=== PATIENT | male | born 1950 | race Caucasian/White ===

== ENCOUNTER 2017-03-25 20:42 | Emergency (ER) | payer MEDICARE ==
[2017-03-25] MEDS ORDERED: Ondansetron INJ* 2 MG/ML VIAL IV ONE (21:23)
[2017-03-25] MEDS ORDERED: Morphine INJ* 2 MG/ML 1 ML SYRINGE IV ONE (21:23)
[2017-03-25] MEDS ORDERED: NS 0.9% 1000 ML* 1,000 ML IV ONE (21:23)
[2017-03-25] MEDS ORDERED: LORazepam INJ* 2 MG/ML 1 ML VIAL IV PUSH ONE (21:50)
[2017-03-25] MEDS ORDERED: LORazepam INJ* 2 MG/ML 1 ML VIAL ONE (21:51)
[2017-03-25 21:53] LABS: Hematocrit 40 % (42-52); Hemoglobin 13.8 g/dl (14.0-18.0); Mean Corpuscular HGB Conc 34 g/dl (31-36); Mean Corpuscular Hemoglobin 31 pg (27-31); Mean Corpuscular Volume 89 fL (80-94); Mean Platelet Volume 7 um3 (7.4-10.4); Red Blood Count 4.53 10^6/ul (4.0-5.4); Red Cell Distribution Width 14 % (10.5-15); White Blood Count 3.5 10^3/ul (3.5-10.8)
[2017-03-25 22:08] LABS: Calcium 9.4 mg/dL (8.6-10.3); EGFR African American 95.9 (>60); EGFR Non-African American 74.5 (>60)
--- NOTE | 2017-03-25 22:49 | ED ---
I, Oh,Sothelma, scribed for Rk Camilo MD on 03/25/17 at 2113 . Upper Extremity Pain - HPI Summary HPI Summary: LEVEL 5 CAVEAT secondary to EtOH intoxication This 66 y/o male presents to ED via ambulance after slipping and falling from the dock RN PALLIATIVE CARE. Pt fell into water from the dock, and was pulled up by family members present at that time. Positive EtOH intoxication and right shoulder pain. Pt is able to move right shoulder at time of initial evaluation. - History of Current Complaint Chief Complaint: EDSubstanceAbuse Stated Complaint: RT SHOULDER INJURY Time Seen by Provider: 03/25/17 21:03 Hx Obtained From: Family/Vessel Builder Onset/Duration: Started Minutes Ago, Traumatic, Still Present Timing: Constant Pain Location: Shoulder - right Aggravating Factor(s): Nothing Alleviating Factor(s): Nothing Associated Signs & Symptoms: Positive: Negative - Allergies/Home Medications Allergies/Adverse Reactions: Allergies Allergy/AdvReac Type Severity Reaction Status Date / Time No Known Allergies Allergy Verified 03/25/17 21:37 PMH/Surg Hx/FS Hx/Imm Hx Previously Healthy: No - PMHx unobtainable due to EtOH intoxication Sensory History: Denies: Hx Legally Blind, Hx Deafness Infectious Disease History: Unable to Obtain/Confirm Infectious Disease History: Denies: Traveled Outside the [place] in Last 30 Days - Family History Known Family History: Positive: Unknown - LEVEL 5 CAVEAT secondary to EtOH intoxication - Social History Alcohol Use: unknown Substance Use Type: Reports: None Smoking Status (MU): Unknown if Ever Smoked - LEVEL 5 CAVEAT secondary to EtOH intoxication Review of Systems - ROS Summary Review of Systems Summary: LEVEL 5 CAVEAT secondary to EtOH intoxication Negative: Fever Positive: Other - right shoulder pain All Other Systems Reviewed And Are Negative: No Physical Exam Triage Information Reviewed: Yes Vital Signs On Initial Exam: Initial Vitals Temp Pulse Resp BP Pulse Ox 96.4 F 79 20 119/84 91 03/25/17 20:51 03/25/17 20:51 03/25/17 20:51 03/25/17 20:51 03/25/17 20:51 Vital Signs Reviewed: Yes Appearance: Positive: Well-Appearing, Pain Distress - mild discomfort, aob Skin: Positive: Warm Head/Face: Positive: Normal Head/Face Inspection Eyes: Positive: EOMI, JUAN RAMON ENT: Positive: Hearing grossly normal Neck: Positive: Supple Respiratory/Lung Sounds: Positive: Clear to Auscultation, Breath Sounds Present Cardiovascular: Positive: RRR Abdomen Description: Positive: Nontender, Soft Bowel Sounds: Positive: Present Musculoskeletal: Positive: Strength/ROM Intact Neurological: Positive: Alert, Oriented to Person Place, Time Psychiatric: Positive: Affect/Mood Appropriate - [place] Coma Scale Coma Scale Total: 15 Diagnostics - Vital Signs Vital Signs Temp Pulse Resp BP Pulse Ox 03/25/17 20:51 96.4 F 79 20 119/84 91 - Laboratory Result Diagrams: 03/25/17 21:45 03/25/17 21:45 Lab Statement: Any lab studies that have been ordered have been reviewed, and results considered in the medical decision making process. - Radiology Shoulder right Radiology Interpretation Completed By: ED Physician - CT Brain CT Interpretation: No Acute Changes - No definite acute hemorrhage, mass or acute territorial infarct. Exam slightly limited by artifact. Age-related involutional changes. No skull fracture. Clear visulaized paranasal sinuses. Visualized mastoid air cells clear. CT Interpretation Completed By: Radiologist C-Spine CT Interpretation: No Acute Changes - No acute fracture. Multilevel spondylosis. Minimal rotation C1-C2, probably positional. CT Interpretation Completed By: Radiologist Re-Evaluation - Re-Evaluation First Eval Re-Evaluation Time: 21:25 Comment: Pt is noted with n/v. Second Eval Change: Improved - results d/w pt, pt ambulatory without difficulty Course/Dx - Course Assessment/Plan: This 66 y/o male presents to ED for right shoulder pain secondary to a fall RN PALLIATIVE CARE. Pt was EtOH intoxicated, slipped from dock, and fell into water RN PALLIATIVE CARE. There was report of possible right shoulder dislocation at time of triage, but pt is noted able to move his right arms at time of initial evaluation. CT Brain and C-spine are without evidence of acute findings. Blood work is nml except for blood EtOH of 313. - Diagnoses Provider Diagnoses: Alcohol intoxication, Multiple contusions - Critical Care Time Critical Care Time: 30-74 min Discharge - Discharge Plan Condition: Stable Disposition: HOME Patient Education Materials: Alcohol Intoxication (ED), Contusion in Adults (ED ) Referrals: Rk Gonzalez MD [Primary Care Provider] - 2 Days The documentation as recorded by the Allen weaver Soohyun accurately reflects the service I personally performed and the decisions made by me, Rk Camilo MD.
[2017-03-25 22:52] LABS: Potassium 4.1 mmol/L (3.5-5.0)
[2017-03-26 06:27] VITALS: BP 109/56
--- NOTE | 2017-03-26 08:52 | RAD ---
Indication: Fall, head injury. CT of the brain was performed without IV contrast. Ventricular structures are midline. No midline shift is noted. The extra-axial spaces are unremarkable. There is no evidence of intracranial mass or hemorrhage. No other high or low density lesions are identified. Mastoid air cells and paranasal sinuses are otherwise unremarkable. IMPRESSION: No intracranial mass or hemorrhage is noted.
--- NOTE | 2017-03-26 08:53 | RAD ---
Indication: Neck injury. CT of the cervical spine was obtained in the axial plane. There is motion artifact limiting evaluation. Mastoid air cells are well aerated. No skull base fractures noted. The C1 ring is intact. Gentle changes of the atlantoaxial joint is noted. At C2-C3 and C3-C4 there is right uncovertebral hypertrophy narrowing the right foramen. No central or foraminal stenosis is noted. At C4-C5 spondylitic ridge flattens the thecal sac. Left uncovertebral joint hypertrophy and left facet arthropathy is noted. At C5-C6 spondylitic ridge flattens the thecal sac. No central or foraminal stenosis is noted. At C6-C7 spondylitic ridge flattens the thecal sac. No fracture is identified. Lung apices are unremarkable. IMPRESSION: Degenerative disc disease at the atlantoaxial joint. Degenerative disc disease at C4-C5, C5-C6 and C6-C7. No definite fracture is identified.
--- NOTE | 2017-03-26 10:41 | RAD ---
Indication: Left shoulder pain after fall. 4 views of left shoulder demonstrates AC joint arthritis. Degenerative changes of the glenohumeral joint is noted. No fracture is noted. IMPRESSION: Degenerative changes of the left glenohumeral joint.
== END 2017-03-26 06:25 | disposition home or self-care (01) ==
LOC: ED 20:42
DX: F10.129 Alcohol abuse with intoxication, unspecified (principal); S40.011A Contusion of right shoulder, initial encounter; M25.511 Pain in right shoulder; W17.4XXA Fall from dock, initial encounter; Y93.89 Activity, other specified; Y92.89 Other specified places as the place of occurrence of the external cause; Y99.8 Other external cause status
CPT/HCPCS: 36415; 70450; 72125; 80048; 80320; 84484; 85025; 96374; 96375; 99285; G0480; J2060; J2270; J2405

== ENCOUNTER 2018-12-24 07:47 | Observation (INO) | payer MEDICARE ==
[~2018-12-24 07:47] MED LIST: Buffered Lidocaine 1% SYRIN* 1 ML/SYRINGE INTRADERM ONE; Lactated Ringers 1000 ML Bag* 1,000 ML IV SCH
[2018-12-24] MEDS ORDERED: Buffered Lidocaine 1% SYRIN* 1 ML/SYRINGE INTRADERM ONE (08:00)
[2018-12-24] MEDS ORDERED: ceFAZolin 2 GM PREMIX in ORs 2 GM/50 ML BAG IVPB ONE (08:00)
[2018-12-24] MEDS ORDERED: Propofol* 10 MG/ML 20 ML BTL ONE (08:25)
[2018-12-24] MEDS ORDERED: Propofol* 500 MG/50 ML BTL ONE (08:25)
[2018-12-24] MEDS ORDERED: KETAMINE HCL* 50 MG/ML 10 ML VIAL ONE (08:25)
[2018-12-24] MEDS ORDERED: Lidocaine 2% PF * 5 ML VIAL ONE (08:40)
[2018-12-24] MEDS ORDERED: ROPIVACAINE 5 MG/ML 30 ML BTL (0.5%) ONE (08:41)
[2018-12-24] MEDS ORDERED: Dexmedetomidine* 200 MCG/2 ML 2 ML VIAL ONE (08:44)
[2018-12-24] MEDS ORDERED: fentaNYL* 50 MCG/ML 2 ML VIAL (100 MCG VIAL) ONE (08:45)
[2018-12-24] MEDS ORDERED: Midazolam* 1 MG/ML 2 ML VIAL (2 MG) ONE (08:45)
[2018-12-24] MEDS ORDERED: Rocuronium* 10 MG/ML VIAL ONE ×2 (09:18→12:42)
[2018-12-24] MEDS ORDERED: Succinylcholine* 20 MG/ML 10 ML VIAL ONE (10:30)
[2018-12-24] MEDS ORDERED: Phenylephrine 10 MG/ML VIAL* 1 ML VIAL ONE (10:44)
[2018-12-24] MEDS ORDERED: Dexamethasone IV* 4 MG/ML 1 ML (4 MG) ONE (11:04)
[2018-12-24] MEDS ORDERED: oxyCODONE TAB* 5 MG TAB PO PRN ×2 (11:11→13:50)
[2018-12-24] MEDS ORDERED: Naloxone* 0.4 MG/ML 1 ML VIAL IV PRN (11:11)
[2018-12-24] MEDS ORDERED: HYDROmorphone INJ1* 1 MG/ML SYRINGE IV PRN (11:11)
[2018-12-24] MEDS ORDERED: Acetaminophen IV 1GM/100ML * 100 ML ONE (12:56)
[2018-12-24] MEDS ORDERED: Metoclopramide IV* 5 MG/ML 2 ML VIAL ONE (12:57)
[2018-12-24] MEDS ORDERED: Ondansetron INJ* 2 MG/ML VIAL ONE (12:57)
[2018-12-24] MEDS ORDERED: Ketorolac INJ* 30 MG/ML 1 ML VIAL ONE (12:57)
[2018-12-24] MEDS ORDERED: Neostigmine Methylsulfate* 1 MG/ML 10 ML VIAL (1 mg/ml) ONE (13:26)
[2018-12-24] MEDS ORDERED: Glycopyrrolate IV* 0.2 MG/ML 1 ML VIAL ONE (13:26)
[2018-12-24] MEDS ORDERED: Ondansetron INJ* 2 MG/ML VIAL IV PRN (13:50)
[2018-12-24] MEDS ORDERED: Magnesium Hydroxide LIQ* 30 ML UDC PO PRN (13:50)
[2018-12-24] MEDS ORDERED: diPHENhydraMINE PO* 25 MG PO PRN (13:50)
[2018-12-24] MEDS ORDERED: Morphine INJ* 2 MG/ML 1 ML SYRINGE (TWO MG - NEW SYRINGE VERSION) IV PRN (13:50)
[2018-12-24] MEDS ORDERED: Cyclobenzaprine TAB* 10 MG PO PRN ×2 (13:50→14:02)
[2018-12-24] MEDS ORDERED: Ondansetron ODT TAB* 4 MG PO PRN (13:50)
[2018-12-24] MEDS ORDERED: Bisacodyl SUPP* 10 MG SUPP PR PRN (13:50)
[2018-12-24] MEDS ORDERED: diPHENhydraMINE IV* 50 MG/ML 1 ml VIAL (BENADRYL) IV PRN (13:50)
[2018-12-24] MEDS ORDERED: D5W 1/2 NS 1000 ML BAG* 1,000 ML IV SCH (14:00)
[2018-12-24] MEDS ORDERED: traMADol TAB* 50 MG PO SCH (14:00)
[2018-12-24] MEDS ORDERED: Phenylephrine 40 MCG/ML SYRINGE ONE (14:56)
[2018-12-24 15:29] LABS: Hematocrit 30 % (42-52); Hemoglobin 10.5 g/dL (14.0-18.0)
[2018-12-24] MEDS ORDERED: EPHEDrine (Pressors)* 50 MG/ML VIAL ONE (16:02)
[2018-12-24] MEDS ORDERED: Lactated Ringers 1000 ML Bag* 1,000 ML IV SCH (17:00)
[2018-12-24] MEDS ORDERED: Lactated Ringers 1000 ML Bag* 1,000 ML IV ONE (19:00)
[2018-12-24] MEDS: ceFAZolin 1 GM ADVAN(*) 1 GM in NS 0.9% 50 ML* 50 ML IVPB SCH (20:03)
[2018-12-24] MEDS: Docusate CAP* 100 MG PO SCH (20:05)
[2018-12-24] MEDS: Magnesium Hydroxide LIQ* 30 ML UDC PO SCH (20:05)
--- NOTE | 2018-12-24 20:22 | CONS ---
CONSULTATION REPORT: ADDENDUM: The patient was seen and examined at bedside. The case was discussed and reviewed with Mami Mayo NP. Mr. Louis is a 68-year-old male with a past medial history of hyperlipidemia, history of prostate cancer, and impaired fasting glucose that was admitted for right shoulder replacement with Dr. Pardo. The hospitalist service was called because the patient developed hypotension postop. At the time of my evaluation, the patient's blood pressure was 96/58. He was maintaining well and had no complaints. He denied dizziness or lightheadedness. His postop H and H was 10/40 and he is seems to be responding to IV fluids. We will continue to follow him along. At this point, he does not seem to have indication for vasopressors. I am in agreement with the current management. [id number]/CPS #: [id number] MTDGermaine
[2018-12-24 20:52] LABS: Hematocrit 30 % (42-52); Hemoglobin 10.2 g/dL (14.0-18.0)
--- NOTE | 2018-12-24 20:55 | CONS ---
ATTENDING PROVIDER ADDENDUM NOW INCLUDED ON THIS REPORT HOSPITAL MEDICINE CONSULTATION REPORT: DATE OF CONSULT: 12/24/18 PROVIDER: Mami Mayo NP ATTENDING PHYSICIAN: Dr. Pardo. CONSULTING PHYSICIAN: Dr. Jesús Perdomo * (dictated by Mami Mayo NP). REASON FOR CONSULT: Hypotension. HISTORY OF PRESENT ILLNESS: Mr. Louis is a 68-year-old male with a past medical history significant for hyperlipidemia, BPH, prostate cancer, GERD, who [place] [facility] right total shoulder replacement with Dr. Pardo. Please see dictated H and P from Dr. Pardo for complete details. In brief, the patient failed conservative measures and opted for a shoulder replacement with Dr. Pardo. In the postoperative period, we were contacted due to the patient's hypotension in the PACU. He denies any dizziness or lightheadedness. Denies any chest pain or shortness of breath. Denies any recent fever, chills, cough, congestion, or hemoptysis. Denies any nausea, vomiting, diarrhea, abdominal pain, gross hematuria, or dysuria. Denies any focal weakness or sensory loss, dysphagia, arthralgias. He does report right shoulder pain that has been chronic prior to the surgery. He denies any rashes , lesions, psychosis, or anxiety. Due to his hypotension in the PACU, Hospital Medicine was asked to consult. PAST MEDICAL HISTORY: Significant for: 1. Hyperlipidemia. 2. BPH. 3. Prostate cancer, status post radiation and prostatectomy. 4. GERD. 5. Depression. PAST SURGICAL HISTORY: 1. Left calcaneus surgery x2. 2. Right knee surgery. 3. Carpal tunnel release bilaterally. 4. Prostatectomy. HOME MEDICATIONS: Include: 1. Omeprazole 40 mg p.o. daily. 2. Lexapro 10 mg p.o. daily. 3. Multivitamin 1 tablet p.o. daily. 4. Crestor 10 mg p.o. daily. ALLERGIES: No known drug allergies. FAMILY HISTORY: Mother with a history of pacemaker in early 80s. No reported history of diabetes. Father with stomach cancer, at the age of 60. Sister with breast cancer. SOCIAL HISTORY: The patient quit smoking approximately 10 years ago. Prior to that, he smoked 2-1/2 packs a day x12 years and then 2 packs a day of cigarettes for a total of 45 years and then went to cigars 5 to 6 cigars a day and stopped in his late 50s. He does report occasional alcohol use. Denies any illicit drug use. He is retired. He is . He lives with his . Surrogate decision maker in the event he is unable to make his own decisions is his . He is a full code. REVIEW OF SYSTEMS: A 14-point review of systems was completed. All pertinent positives are mentioned in the HPI. Otherwise were negative. PHYSICAL EXAM: General: At this time, Mr. Louis is a 68-year-old male. He is alert and oriented, sitting on the stretcher in PACU. He is not in any acute distress. Vital Signs: Blood pressure was 93/61, heart rate 96, respirations were 22, O2 saturation 94% on room air, temperature was 97.0. HEENT: Head is atraumatic, normocephalic. Eyes: EOMs are intact. Sclerae anicteric and not pale. Oral mucosa appeared to be moist. Neck is supple. Lungs are clear to auscultation bilaterally. No wheezes, rales, or rhonchi. Cardiac: S1, S2. Regular rate and rhythm. No murmurs, rubs, or gallops. Abdomen is soft and nontender. Bowel sounds are present x4. Extremities: He has limited range of motion of his right arm. It is in a shoulder immobilizer. Radial pulses +2 bilaterally. CMSTs are intact to the right hand. Pedal pulses are +2 bilaterally. There is no clubbing or cyanosis. Skin: He has a dressing intact to his right shoulder. There is no drainage noted. Neurologic : The patient is awake, alert, and oriented x3. Speech is clear. Thought process is intact. There are no gross focal deficits. Psych: The patient is alert and oriented, cooperative. DIAGNOSTIC STUDIES/LAB DATA: Repeat H and H were 10.5 and 30. On 12/12/18, the patient's CBC: WBCs were 2.4, RBCs 4.16, hemoglobin 10.5, hematocrit was 30 , platelet count was 172. INR was 0.87, APTT was 27.9. Sodium 141, potassium 4.5, chloride 106, carbon dioxide was 28, anion gap of 7, BUN was 24, creatinine 0.82, glucose was 97, calcium 9.6. ASTs were 21, ALTs were 30, alkaline phosphatase was 57. Urine on 12/12/18 was negative. ASSESSMENT AND PLAN: Mr. Louis is a 68-year-old male with a past medical history significant for hyperlipidemia, history of prostate cancer, gastroesophageal reflux disease, and osteoarthritis of the right shoulder, who [place] [facility] [place] an elective right shoulder replacement with Dr. Pardo. In the postoperative period, the patient was found to be hypotensive and so Hospital Medicine was consulted. 1. Hypotension. The patient was given fluid bolus in PACU and the patient's blood pressure responded and returned to within normal limits. We will continue to monitor his blood pressure and give fluids as necessary. The patient did have approximately 250 cc blood loss during the surgery. We will continue to monitor his H and H. I will repeat an H and H in 6 hours and repeat a CBC in the a.m. 2. Status post right shoulder replacement. Management per Orthopedics. PT/OT per Orthopedics. DVT prophylaxis per Orthopedics. Bowel regimen per Orthopedics. 3. Depression. He should continue on Lexapro as previously prescribed. 4. Gastroesophageal reflux disease. The patient should continue on omeprazole as previously prescribed. 5. Hyperlipidemia. He should continue on Crestor as previously prescribed. 6. FEN: The patient can have a regular diet. 7. Code status: He is a full code. 8. DVT prophylaxis: Per Orthopedics. 9. Disposition: The patient will be placed on Short Stay. TIME SPENT: Time spent on this consultation was approximately 45 minutes; greater than half that time was spent at the bedside reviewing events leading thus far to his hospitalization, performing my physical exam, and reviewing my plan of care. I have discussed with my attending, Dr. Jesús Perdomo; she is in agreement with my plan. MAMI MAYO NP ADDENDUM: The patient was seen and examined at bedside. The case was discussed and reviewed with Mami Mayo NP. Mr. Louis is a 68-year-old male with a past medial history of hyperlipidemia, history of prostate cancer, and impaired fasting glucose that was admitted for right shoulder replacement with Dr. Pardo. The hospitalist service was called because the patient developed hypotension postop. At the time of my evaluation, the patient's blood pressure was 96/58. He was maintaining well and had no complaints. He denied dizziness or lightheadedness. His postop H and H was 10/40 and he is seems to be responding to IV fluids. We will continue to follow him along. At this point, he does not seem to have indication for vasopressors. I am in agreement with the current management. JESÚS Perdomo MD [id number]/CPS #: [id number] Suzanne [id number]/CPS #: [id number] MANISH
[2018-12-24] MEDS ORDERED: Escitalopram * 10 MG TAB PO SCH (21:00)
[2018-12-24] MEDS: Acetaminophen TAB* 325 MG PO SCH (21:43)
--- NOTE | 2018-12-24 23:17 | OP ---
DATE OF OPERATION: 12/24/18 - ROOM #341 DATE OF : 48 SURGEON: Jesús Pardo MD. SPINE NURSE: Rashida Benitez RPA. ANESTHESIA: Regional and general. PRE-OP DIAGNOSIS: Osteoarthritis, right shoulder. POST-OP DIAGNOSIS: Osteoarthritis, right shoulder. OPERATIVE PROCEDURE: Right total shoulder arthroplasty. ESTIMATED BLOOD LOSS: 250 cc. COMPLICATIONS: None. HARDWARE: [employer] 22 stem with small body, 48-mm head with 2-mm offset , SMR glenoid with medium peg and 2 screws. INDICATIONS: Mr. Louis is a 68-year-old male who is right hand dominant. He has been having troubles with right shoulder pain for years, but has recently gotten worse. He originally presented to the office asking about a second opinion on whether he needed a shoulder replacement and after discussing with him that he was [id number] on the axillary view, he reported that he was very interested in undergoing a should replacement. This had been apparently discussed with him before. Risks of surgery such as infection, scar formation, stiffness, instability, and hardware failure were some of the risks discussed. He had been declared medically optimized and wished to proceed. DESCRIPTION OF PROCEDURE: The patient had a scalene block placed in the holding area and was brought back to the OR. General endotracheal anesthesia was established and he was sat up in the beach chair position. Care was taken to make sure that his ears were nice and free and that the cubital tunnel on his left side was also not impinged upon. Right shoulder area was prepped and then draped. Incision was made centered about the coracoid and came downwards towards the proximal biceps in the usual oblique angle. Incision was carried down through the skin and he had very little subcutaneous fat. Some of the fascia was incised with this. Blunt dissection with a lianet was carried out so that I had better exposure of the deltoid in the pectoralis and a fat stripe was seen and this was developed and the cephalic vein was gently exposed with a little blunt dissection, however, trying to decide which way it would go. A small bleeder was torn off and this would be patched using a 4-0 Prolene. Cephalic vein ended up going laterally. Deltoid retractor was placed and retractor was placed under the pectoralis and nice exposure of the fascia anteriorly was obtained. Using the lianet again, the wispiness was taken down such that I could better expose the strap muscles and I could easily feel and see part of the pectoralis major attachment on the proximal humerus. There was not the 3 sisters coming around the proximal humerus. With palpation, I could feel the bone spur that I could see by the x-rays and the CAT scan and staying lateral to that and coming about a centimeter lateral from the biceps with the arm in external rotation. Electrocautery was used to score the rotator cuff. Sharp dissection was then used to peel rotator cuff off and develop an interval between the supraspinatus and the subscap. I was able to peel this back and then a Crisostomo was used to scrape the bone by the spurs to help peel some of the capsule right in that area as well. Great care was taken not to slip and not to plunge so that the axillary nerve would not be injured. I was able to expose the proximal humerus nicely this way. With external rotation and a little forward push, he dislocated easily. Awl was used to open the humeral canal and intramedullary guide was placed. Outrigger was assembled and adjusted until it appeared it would cut nicely right across the worn articular surface of the humeral head. Cutting guide was pinned into place and the proximal humeral cut was taken. It appeared a nice cut was obtained. It was a little bit larger than what I had templated, but the template did not have a sizer on it, so I had increased the size by 15%. A cap was placed on the top of the humerus and pushed posteriorly. This almost gave good exposure to the glenoid. Part of the capsule and labrum was released and this helped. Again, care was taken not to plunge, so the end slowly developed so that I could get nice exposure. Glenoid was marked with cross hairs so that I would have the approximation of the center of the glenoid. A 10-degree guide was placed as he had some posterior wear and guidewire was run. Nice bite was obtained with the guidewire. Reamer was then run and reamer worked well to expose some of the subchondral bone and some of the subchondral bone was left on the more posterior aspect. Drill was then run as I templated him for a medium peg and the guidewire was still nicely sunk within the scapula. Guidewire had to be removed using the drill. SMR standard body with a medium peg was called for and assembled. This was then impacted into place. This required a little bit of work to impact as when I initially thought it was seated as I could hear the sound change with the malleting, but I could easily hook the depth gauge underneath the holes for the screws. Once this was finally fully seated, drill was used superiorly and inferiorly. A 20-mm screw was placed superiorly and inferiorly. I could only get a 15-mm screw in, but it had a wonderful bite. Polyethylene was then snapped into place. Attention was returned to the proximal humerus. Encap was removed and he was progressively broached. I templated for an 18, but with the 18, he countersunk and I was able to progress to a 20 where he seemed to have a solid fit. He was then trialed with a 48-mm head as this lined up nicely with placing the resected humeral head against the trials and I used a 2-mm offset. Initially, this seemed to do alright, but he then seemed to have added play especially posteriorly. It turns out that with the head on, it was no longer proud and the stem had countersunk. It took a little bit to extract the stem from the humeral shaft. This was eventually extracted and he was upsized to a 20 and then a 21. With the 21, again I thought that I had a nice bite, but with the Encap on it and trying to impact a little bit, it did slide a little. I was also able to nearly fully seat the 21 until it was only about 2 to 3 mm above and then impacted it with the mallet. With the 22, we had problems with the little pins , which caught and connected the body to the stem; however, I was able to bend the pins back such that the medium body could be connected to it solidly. This needed to be impacted for about 2 to 3 cm and I had a nice solid fit. He was trialed with a 48 head and I was very pleased with his stability and his motion. Trial instrumentation was removed and then shoulder was copiously pulse lavaged. Immediate small body with the 22 stem was assembled on the back table and impacted into place. Wonderful bite was obtained. He was again trialed with a 48 and the same wonderful motion and stability. 48 head with the 2 mm offset was then impacted into place and I could not lever the head off. Shoulder was again relocated and taken through motion and he had very good motion. Subscap was repaired using #2 Ethibond sutures and this was done with the arm at approximately 45 degrees. I could easily get him to about 75 degrees and all the stitches still held, similarly bring him up into forward elevation, did not cause any of the stitches to pull through. Shoulder was again copiously pulse lavaged and coming back to the cephalic vein, it no longer was oozing and was still flowing. Cephalic vein was buried using 2-0 Vicryl sutures. Subcutaneous tissues were approximated with 2-0 Vicryl, skin was closed using a running Monocryl. Sterile dressing and a shoulder immobilizer were applied in the OR. The patient was then extubated in the OR and was stable on transfer to the recovery room. [id number]/CPS #: [id number] MANISH
[2018-12-25] MEDS: ceFAZolin 1 GM ADVAN(*) 1 GM in NS 0.9% 50 ML* 50 ML IVPB SCH ×2 (03:39→11:12)
[2018-12-25] MEDS: Acetaminophen TAB* 325 MG PO SCH ×2 (05:46→13:47)
[2018-12-25 06:20] LABS: ABS Lymphocytes 0.6 10^3/ul (1.0-4.8); ABS Monocytes 0.8 10^3/ul (0-0.8); ABS Neutrophils 5.5 10^3/ul (1.5-7.7); Hematocrit 27 % (42-52); Hemoglobin 9.5 g/dL (14.0-18.0); Lymphocyte % 9.3 %; Mean Corpuscular HGB Conc 35 g/dL (31-36); Mean Corpuscular Hemoglobin 31 pg (27-31); Mean Corpuscular Volume 88 fL (80-94); Mean Platelet Volume 6.5 fL (7.4-10.4); Platelet Count 178 10^3/uL (150-450); Red Blood Count 3.09 10^6 /uL (4.18-5.48); Red Cell Distribution Width 13 % (10.5-15); White Blood Count 6.9 10^3/uL (3.5-10.8)
[2018-12-25 06:38] LABS: Calcium 9.3 mg/dL (8.6-10.3); EGFR African American 103.9 (>60); EGFR Non-African American 85.9 (>60); Potassium 4.3 mmol/L (3.5-5.0)
[2018-12-25] MEDS: Docusate CAP* 100 MG PO SCH (07:25)
[2018-12-25] MEDS: traMADol TAB* 50 MG PO PRN ×2 (07:26→13:48)
[2018-12-25] MEDS: Magnesium Hydroxide LIQ* 30 ML UDC PO SCH (07:29)
[2018-12-25] MEDS ORDERED: Atorvastatin* 20 MG TAB PO SCH (09:00)
[2018-12-25] MEDS ORDERED: Pantoprazole TAB * 40 MG TAB PO SCH (09:00)
--- NOTE | 2018-12-25 11:55 | PN ---
Progress Note - Progress Note Date of Service: 12/25/18 SOAP: Subjective: [] Pt seen at bedside. He feels well. Denies CP, SOB, dizziness, nausea. Patient was hypotensive in the PACU, stable overnight. Objective: []General: Appears well, NAD RUE: Sling in place, dressing CDI. Able to flex and extend at elbow, wrist and digits. Thumbs up and okay sign intact. Sensation intact to light touch distally , radial pulse 2+, capillary refill less than two seconds distally. Assessment: []Right total shoulder replacement Plan: []NWB RUE PROM FF and ABD to 90, ER to 25, no AROM of the shoulder DC to home after abx, PT, OT complete Vital Signs Temp 97.8 F 12/25/18 07:21 Pulse 84 12/25/18 07:21 Resp 16 12/25/18 11:12 BP 113/67 12/25/18 07:21 Pulse Ox 96 12/25/18 07:30 Intake & Output 12/24/18 12/25/18 12/25/18 18:59 06:59 18:59 Intake Total 4000 3104 85 Output Total 1100 420 Balance 2900 2684 85 Weight 205 lb 12.8 oz Intake: IV Fluids 4000 1104 30 0.9% NS 1000 LR 3000 980 NS 10 30 cefazolin 114 IVPB 55 cefazolin 55 Oral 2000 Output: Urine 420 Cortes 500 Straight Cath 500 Residual 100 Cortes 16 Fr 100 Other: Estimated Void Medium # Voids 3 Laboratory Last Values WBC 6.9 10^3/uL (3.5-10.8) 12/25/18 06:06 RBC 3.09 10^6 /uL (4.18-5.48) L 12/25/18 06:06 Hgb 9.5 g/dL (14.0-18.0) L 12/25/18 06:06 Hct 27 % (42-52) L 12/25/18 06:06 MCV 88 fL (80-94) 12/25/18 06:06 MCH 31 pg (27-31) 12/25/18 06:06 MCHC 35 g/dL (31-36) 12/25/18 06:06 RDW 13 % (10.5-15) 12/25/18 06:06 Plt Count 178 10^3/uL (150-450) 12/25/18 06:06 MPV 6.5 fL (7.4-10.4) L 12/25/18 06:06 Neut % (Auto) 78.6 % 12/25/18 06:06 Lymph % (Auto) 9.3 % 12/25/18 06:06 [place] % (Auto) 11.9 % 12/25/18 06:06 Eos % (Auto) 0.0 % 12/25/18 06:06 Baso % (Auto) 0.2 % 12/25/18 06:06 Absolute Neuts (auto) 5.5 10^3/ul (1.5-7.7) 12/25/18 06:06 Absolute Lymphs (auto) 0.6 10^3/ul (1.0-4.8) L 12/25/18 06:06 Absolute Monos (auto) 0.8 10^3/ul (0-0.8) 12/25/18 06:06 Absolute Eos (auto) 0.0 10^3/ul (0-0.6) 12/25/18 06:06 Absolute Basos (auto) 0.0 10^3/ul (0-0.2) 12/25/18 06:06 Absolute Nucleated RBC 0.0 10^3/ul 12/25/18 06:06 Nucleated RBC % 0.0 12/25/18 06:06 Sodium 137 mmol/L (135-145) 12/25/18 06:06 Potassium 4.3 mmol/L (3.5-5.0) 12/25/18 06:06 Chloride 106 mmol/L (101-111) 12/25/18 06:06 Carbon Dioxide 25 mmol/L (22-32) 12/25/18 06:06 Anion Gap 6 mmol/L (2-11) 12/25/18 06:06 BUN 22 mg/dL (6-24) 12/25/18 06:06 Creatinine 0.88 mg/dL (0.67-1.17) 12/25/18 06:06 Est GFR ( Amer) 103.9 (>60) 12/25/18 06:06 Est GFR (Non-Af Amer) 85.9 (>60) 12/25/18 06:06 BUN/Creatinine Ratio 25.0 (8-20) H 12/25/18 06:06 Glucose 121 mg/dL (70-100) H 12/25/18 06:06 Calcium 9.3 mg/dL (8.6-10.3) 12/25/18 06:06 <Rashida Benitez - Last Filed: 12/25/18 11:55> - Progress Note SOAP: The pts dressing was changed today by Chente Amador PA-C. There was concern about blood on the dressing. The pts dressing had moderate blood present on the 4x4s. This was dry. There was dry blood on the skin. No active bleeding was seen. New dressing was applied. <Chente Amador - Last Filed: 12/25/18 16:08>
[2018-12-25] MEDS ORDERED: Enoxaparin(*) 40 MG/0.4 ML SYR SUBCUT SCH (12:00)
--- NOTE | 2018-12-25 12:03 | DS ---
Orthopedic Discharge Summary - Discharge Summary Date of Admission:12/24/18 Date of Discharge: 12/25/18 Date of Surgery: 12/24/18 Attending Orthopedic Provider: Dr Pardo Pre-operative Diagnosis: Right shoulder arthritis Operative Procedure: right total shoulder arthroplasty Condition of Patient: stable History: CONNIE PETER is a 68 year old M with years of increasingly severe right shoulder pain. Patient has failed conservative management and has elected to undergo a right total shoulder replacement Hospital Course: CONNIE was admitted to [facility] on 12/24/18. Patient underwent a right shoulder arthroplasty without complication followed by a brief recovery in PACU and transfer to the Short Stay Surgical Unit in stable condition. He was hypotensive in the PACU and managed by the hospitalist service. Our hospitalist service, physical therapy and occupational therapy also participated in this patients care. Post-op day 1: patient was alert and in no acute distress. Dressing was clean, dry and intact. He was neurovascularly intact distally. Patient was deemed to be medically and orthopedically stable for discharge home. Physical therapy goals were met. Home Medications Medication Instructions Recorded Confirmed Type Escitalopram * [Lexapro 10 mg (NF)] 10 mg PO BEDTIME 12/12/18 12/24/18 History Multivit-Min/FA/Lycopen/Lutein 1 each PO QAM 12/12/18 12/24/18 History [Centrum Silver Men Tablet] Omeprazole 40 mg PO QPM 12/12/18 12/24/18 History Rosuvastatin Calcium [Crestor] 10 mg PO QPM 12/12/18 12/24/18 History Acetaminophen TAB* [Tylenol TAB*] 975 mg PO Q8HR tab 12/25/18 Rx Docusate CAP* [Colace Cap*] 100 mg PO BID PRN #90 cap 12/25/18 Rx traMADol TAB* [Ultram*] 50 mg PO Q6H PRN #50 tab MDD 8 12/25/18 Rx Discharge instruction Non-weight bearing to operative arm, able to remove from sling for showering POD #3, pendulum exercises as shown by PT, passive range of motion to 90 flexion , abduction, and 25 external rotation passively as shown. No Active movement of shoulder. Wound Care: OK to shower post op day 3, no bathing/ swimming/ submerging wound. Use gentle soap, pat dry. Cover with gauze, paper tape. Call Orthopedic office for increased drainage, redness, increased pain, or fever. Go to ER with shortness of breath or chest pain. Allow Steri strips to fall off on their own, do not peel them off. Diet: Regular diet, increase fluids and fiber to prevent constipation. Continue to use stool softeners, call office if no bowel motion within 48 hours. - Continue physical therapy and occupational therapy exercises as shown. - Visiting home nurse to remove suture tags in 10-12 days and do wound checks. - Pain control: ---tramadol 50 mg take 1-2 tabs every 6 hours as needed for pain, max of 8 tabs in one day. hold for sedation, wean off to tylenol only as pain allows. - Antibiotics required prior to any dental work -First post op Follow up with Dr Pardo in 4 weeks, sooner with any concerns Please call our office to make an appointment and with any questions or concerns ([phone]) RX to [facility] [place]
[2018-12-25] MEDS ORDERED: Cyclobenzaprine TAB* 10 MG PO ONE (13:20)
[2018-12-25 13:38] VITALS: BP 113/66
== END 2018-12-25 16:15 | disposition home or self-care (01) ==
LOC: INTOOBSV 07:47 → AA 07:47 → OBSVTOIN 13:50 → INTOOBSV 13:50 → SSU 18:12
PROVIDERS: ADMIT Orthopaedic Surgery; ATTEND Orthopaedic Surgery
DX: M19.011 Primary osteoarthritis, right shoulder (principal); E78.5 Hyperlipidemia, unspecified; F32.9 Major depressive disorder, single episode, unspecified; K21.9 Gastro-esophageal reflux disease without esophagitis; Z87.891 Personal history of nicotine dependence; Z85.46 Personal history of malignant neoplasm of prostate
CPT/HCPCS: 36415; 80048; 85014; 85018; 85025; 96365; 96366; 96372; A9270-GY; G0378; G8978-GP-CI; G8979-GP-CI; G8980-GP-CI; G8987-GO-CK; G8988-GO-CI; G8989-GO-CK; J0330; J0690; J1100; J1650; J1885; J2250; J2405; J2704; J2710; J2765; J2795; J3010